=== PATIENT | male | born 1985 | race Caucasian/White ===

== ENCOUNTER 2020-07-31 20:03 | Emergency (ER) | payer OTHER ==
[~2020-07-31] VITALS: Ht 170.2 cm; Wt 77.1 kg
[2020-07-31] MEDS ORDERED: ERYTHROMYCIN E3.5 G2 OPHTHALMIC (20:43)
[2020-07-31 20:45] VITALS: BP 128/76
== END 2020-07-31 20:45 | disposition home or self-care (01) ==
LOC: M.ERS 20:03
DX: S05.02XA Injury of conjunctiva and corneal abrasion without foreign body, left eye, initial encounter (principal); F17.210 Nicotine dependence, cigarettes, uncomplicated; X58.XXXA Exposure to other specified factors, initial encounter; Y93.89 Activity, other specified; Y92.89 Other specified places as the place of occurrence of the external cause; Y99.8 Other external cause status